=== PATIENT | female | born 1990 | race Two or more races ===

== ENCOUNTER 2022-05-18 10:19 | Emergency (ER) | payer OTHER ==
[~2022-05-18] VITALS: Ht 154.9 cm; Wt 68.0 kg
== END 2022-05-18 12:29 | disposition home or self-care (01) ==
LOC: ER 10:19
DX: J45.901 Unspecified asthma with (acute) exacerbation (principal); Z20.828 Contact with and (suspected) exposure to other viral communicable diseases

== ENCOUNTER 2022-09-29 13:49 | Outpatient (CLI) | payer OTHER | END 2022-09-29 14:01 | disposition home or self-care (01) | LOC: RAD 13:49 | DX: M54.2 Cervicalgia (principal); M54.59 Other low back pain; M54.6 Pain in thoracic spine ==

== ENCOUNTER 2023-01-19 10:57 | Emergency (ER) | payer OTHER ==
[~2023-01-19] VITALS: Ht 154.9 cm; Wt 71.7 kg
== END 2023-01-19 17:02 | disposition home or self-care (01) ==
LOC: ER 10:57
DX: J45.909 Unspecified asthma, uncomplicated (principal); J40 Bronchitis, not specified as acute or chronic; Z20.822 Contact with and (suspected) exposure to COVID-19

== ENCOUNTER 2023-02-18 15:09 | Outpatient (CLI) | payer OTHER | END 2023-02-18 15:21 | disposition home or self-care (01) | LOC: SONOGRAMA 15:09 | PROVIDERS: ATTEND General Practice | DX: E28.2 Polycystic ovarian syndrome (principal); R10.2 Pelvic and perineal pain ==

== ENCOUNTER 2023-05-22 19:43 | Emergency (ER) | payer OTHER ==
[~2023-05-22] VITALS: Ht 154.9 cm; Wt 68.9 kg
[2023-05-22] MEDS ORDERED: SINGULAIR10 MG (20:21)
[2023-05-22] MEDS ORDERED: PRENATABS RX T1 EACH (20:21)
[2023-05-23 01:25] LABS: HEMATOCRIT 33.7 % (36.0-45.00); HEMOGLOBIN 11.2 g/dL (12.0-15.00); MEAN CELL VOLUME 82.8 fL (80.00-100.00); MEAN CORPUSCULAR HEMOGLOBIN 27.6 pg (27.00-32.0); MEAN CORPUSCULAR HGB CONC 33.4 g/dl (32.0-36.0); PLATELET COUNT 220 K/uL (150-450); RED BLOOD COUNT 4.07 M/uL (4.00-6.00); RED CELL DISTRIBUTION WIDTH 13.4 % (11.5-14.5)
== END 2023-05-23 04:26 | disposition home or self-care (01) ==
LOC: ER 19:43
DX: O99.511 Diseases of the respiratory system complicating pregnancy, first trimester (principal); J06.9 Acute upper respiratory infection, unspecified; J45.909 Unspecified asthma, uncomplicated; Z3A.13 13 weeks gestation of pregnancy; Z20.822 Contact with and (suspected) exposure to COVID-19; Z91.018 Allergy to other foods

== ENCOUNTER 2023-07-08 08:10 | Outpatient (CLI) | payer OTHER ==
[~2023-07-08 08:10] MED LIST: PRENATABS RX T1 EACH; SINGULAIR10 MG
== END 2023-07-08 08:14 | disposition home or self-care (01) ==
LOC: PRENATAL 08:10
PROVIDERS: ATTEND Obstetrics & Gynecology Maternal & Fetal Medicine
DX: O35.9XX0 Maternal care for (suspected) fetal abnormality and damage, unspecified, not applicable or unspecified (principal); O35.3XX0 Maternal care for (suspected) damage to fetus from viral disease in mother, not applicable or unspecified; O44.00 Complete placenta previa NOS or without hemorrhage, unspecified trimester; Z3A.20 20 weeks gestation of pregnancy

== ENCOUNTER → 2023-09-23 09:30 | Outpatient (CLI) | payer OTHER | END | disposition home or self-care (01) | LOC: PRENATAL 09:30 | PROVIDERS: ATTEND Obstetrics & Gynecology Maternal & Fetal Medicine | DX: O26.849 Uterine size-date discrepancy, unspecified trimester (principal); O36.8199 Decreased fetal movements, unspecified trimester, other fetus; Z3A.31 31 weeks gestation of pregnancy ==